=== PATIENT | female | born 1965 | race Caucasian/White ===

== ENCOUNTER 2019-12-28 01:52 | Outpatient (CLI) | payer BC, SELFPAY ==
[2019-12-28 20:48] LABS: SARS-CoV-2 RNA PCR Negative
== END 2019-12-28 01:53 | disposition home or self-care (01) ==
LOC: ANHCOVIDDT 01:53
PROVIDERS: PCP Internal Medicine; Visit Provider Internal Medicine Gastroenterology
DX: Z01.812 Encounter for preprocedural laboratory examination (principal); Z11.59 Encounter for screening for other viral diseases
CPT/HCPCS: 87635; C9803; U0003

== ENCOUNTER 2019-12-30 01:27 | Day surgery (SDC) | payer BC, SELFPAY ==
[2019-12-23 10:12] VITALS: BMI 21.3
[2019-12-30 06:27] VITALS: BMI 20.6
[2019-12-30 06:41] VITALS: BP 114/72; PULSE 75; RESP 20; TEMP 36.5; O2SAT 99
[2019-12-30] MEDS: LACTATED RINGERS 1,000 ML 150 ML IV CONT (06:43)
--- NOTE | 2019-12-30 07:06 | PM.HPGS ---
History of Present Illness History of Present Illness Consent: Risks, benefits, and alternatives have been discussed and questions answered. Patient agrees to proceed with procedure. Chief complaint: Neoplasm Screening Narrative: Bisi Mayberry is a 54 year old W female Referred for screening colonoscopy. Patient is asymptomatic. There is no known family history of colon polyps or colon cancer. Patient did have a colonoscopy approximately 13 years ago she had a iron deficiency anemia this is a normal exam. Patient has responded to iron supplementation. [facility] Past Medical History Medical History (Updated 12/30/19 @ 07:07 by Michael Tamez MD) Hypertension Surgical History Surgical History (Updated 12/30/19 @ 07:08 by Michael Tamez MD) H/O left wrist surgery H/O wisdom tooth extraction History of appendectomy History of endometrial ablation Social History Social History Alcohol intake: current Drinks per week: 7 Substance use type: does not use Living arrangements: alone Spiritual care concerns: No Meds Home Medications and Allergies Home Medications Medication Instructions Recorded Confirmed Type [place]-3 1 tab-cap PO DAILY 12/23/19 12/23/19 History Zinc 1 tab-cap PO DAILY 12/23/19 12/30/19 History cholecalciferol (vitamin D3) 1,000 mcg PO DAILY 12/23/19 12/23/19 History [Vitamin D3] ibuprofen 200 mg PO Q6H PRN 12/23/19 12/23/19 History liothyronine 10 mcg PO DAILY 12/23/19 12/23/19 History lisinopril-hydrochlorothiazide 20 - 25 tablet PO DAILY 12/23/19 12/23/19 History magnesium oxide 500 mg PO DAILY 12/23/19 12/23/19 History opggmqnmvwra-xzef-faoyn acid 1 tablet PO DAILY 12/23/19 12/23/19 History [Daily Multivitamin with Iron] Allergies Allergy/AdvReac Type Severity Reaction Status Date / Time Sulfa (Sulfonamide Allergy Hives Verified 12/23/19 10:07 Antibiotics) Vital Signs Vital Signs - 24 hr 12/30/19 06:41 Temperature 36.5 C Pulse Rate 75 Respiratory Rate 20 Blood Pressure 114/72 Pulse Oximetry 99 Exam Const: Orientation/consciousness: patient oriented x3 Resp: Auscultation: clear to auscultation bilaterally Cardio: Rate: regular rate Rhythm: regular rhythm Heart sounds: no murmurs GI: GI Palp: Yes Soft to palpation, No Tenderness to palpation present (GI), Yes No hepatosplenomegaly present and No Palpable mass present Auscultation: normal bowel sounds Neuro: General: patient oriented x3 and no focal motor deficits Extrem: General: no pedal edema Assessment and Plan Additional Plan screening colonoscopy in average risk patient
--- NOTE | 2019-12-30 07:12 | P.PNAN_ITS ---
Anes - Initial Pre Proc Eval Procedure: Operation Date: 12/30/19 07:30 Proposed Procedures p Screening Colonoscopy - Michael Tamez MD Date/Time: 12/30/19 07:12 Surgeon: Michael Tamez MD Pre Op Diagnosis: Neoplasm Screening Patient Data Age: 54 Gender: F Height: 5 ft 4 in Weight: 54.5 kg Last Vital Signs Temp 97.7 F 12/30/19 06:41 Pulse 75 12/30/19 06:41 Resp 20 12/30/19 06:41 BP 114/72 12/30/19 06:41 Pulse Ox 99 12/30/19 06:41 Allergies Allergy/AdvReac Type Severity Reaction Status Date / Time Sulfa (Sulfonamide Allergy Hives Verified 12/23/19 10:07 Antibiotics) Home Medications Medication Instructions Recorded Confirmed Type [place]-3 1 tab-cap PO DAILY 12/23/19 12/23/19 History Zinc 1 tab-cap PO DAILY 12/23/19 12/30/19 History cholecalciferol (vitamin D3) 1,000 mcg PO DAILY 12/23/19 12/23/19 History [Vitamin D3] ibuprofen 200 mg PO Q6H PRN 12/23/19 12/23/19 History liothyronine 10 mcg PO DAILY 12/23/19 12/23/19 History lisinopril-hydrochlorothiazide 20 - 25 tablet PO DAILY 12/23/19 12/23/19 History magnesium oxide 500 mg PO DAILY 12/23/19 12/23/19 History rmuawqlbbtvb-uxmt-cqkcg acid 1 tablet PO DAILY 12/23/19 12/23/19 History [Daily Multivitamin with Iron] Patient hx anesthesia problems: none Family hx anesthesia problems: none PMFSH Past Medical History Medical History (Updated 12/30/19 @ 07:07 by Michael Tamez MD) Hypertension Surgical History Surgical History (Updated 12/30/19 @ 07:08 by Michael Tamez MD) H/O left wrist surgery H/O wisdom tooth extraction History of appendectomy History of endometrial ablation Social History Social History Alcohol intake: current Drinks per week: 7 Substance use type: does not use Living arrangements: alone Spiritual care concerns: No Anes - Eval Final PreProcedure Day of Procedure 12/30/19 07:12 Patient weight: normal Heart: regular rate and rhythm Lungs: clear to auscultation Airway: Mallampati scale class II Neurological: alert and oriented Last oral intake: >/= 8 hours ASA classification: II Emergent: no Anesthetic plan: proceed Anesthesia type and monitoring: general GIVS and standard monitoring Informed Consent: The patient's anesthetic plan and its attendant risks and benefits were discussed with the patient/family/POA. Questions were solicited and answers provided to the satisfaction of the patient/family/POA.
[2019-12-30 07:47] VITALS: BP 106/66; PULSE 60; RESP 15; O2SAT 93
[2019-12-30 07:57] VITALS: BP 112/74; PULSE 59; RESP 12; O2SAT 99
[2019-12-30 08:07] VITALS: BP 119/77; PULSE 56; RESP 12; O2SAT 98
== END 2019-12-30 08:17 | disposition home or self-care (01) ==
PROVIDERS: PCP Internal Medicine; Visit Provider Internal Medicine Gastroenterology
PROC: 0DJD8ZZ Inspection of Lower Intestinal Tract, Via Natural or Artificial Opening Endoscopic (ICD-10-PCS; CPT 45378; principal; 2019-12-30 07:30)
DX: Z12.11 Encounter for screening for malignant neoplasm of colon (principal); K62.1 Rectal polyp; K64.4 Residual hemorrhoidal skin tags; I10 Essential (primary) hypertension; Z79.899 Other long term (current) drug therapy; Z88.2 Allergy status to sulfonamides
CPT/HCPCS: 45380; 88305; J2001; J2704; J7120

== ENCOUNTER 2022-09-30 08:36 | Outpatient (CLI) | payer OTHER, SELFPAY ==
--- NOTE | ~2022-09-30 | US_ITS ---
EXAMINATION: US venous doppler [facility] DATE: 09/30/2022 09:11 INDICATION: Left lower limb pain. TECHNIQUE: Grayscale ultrasound images without and with compression and Doppler ultrasound images of the left lower extremity veins were obtained. COMPARISON: None. FINDINGS: The visualized portions of left common femoral vein, profunda (deep) femoral vein, femoral vein, popl iteal vein, peroneal veins, posterior tibial veins, and greater saphenous vein outflow are patent. IMPRESSION: 1. No deep venous thrombosis. Reviewed, dictated and finalized at location A.
== END 2022-09-30 08:37 | disposition home or self-care (01) ==
PROVIDERS: PCP Internal Medicine; Visit Provider Orthopaedic Surgery
DX: M79.605 Pain in left leg (principal); M79.89 Other specified soft tissue disorders
CPT/HCPCS: 93971

== ENCOUNTER 2022-10-11 07:50 | Outpatient (CLI) | payer OTHER, SELFPAY ==
[2022-10-11 08:34] LABS: Basophils Absolute Auto 0.1 K/mm3 (0.0-0.1); Basophils Percent Auto 0.9 % (0.2-1.2); Eosinophils Absolute Auto 0.2 K/mm3 (0-0.3); Eosinophils Percent Auto 2.3 % (0-4.4); Hemoglobin 13.9 g/dL (12.0-15.0); Immature Granulocyte Absolute 0.05 K/mm3 (0.00-0.031); Immature Granulocyte Percent A 0.8 % (0-0.5); Lymphocytes Absolute Auto 1.48 K/mm3 (0.9-3.2); Lymphocytes Percent Auto 22.6 % (18.3-44.2); Mean Corpuscular HGB Conc 34.8 g/dl (32-36); Mean Corpuscular Hemoglobin 34.5 pg (26-34); Mean Corpuscular Volume 99.3 fl (80-100); Mean Platelet Volume 9.6 fl (7.4-10.4); Monocytes Absolute Auto 0.7 K/mm3 (0.1-0.6); Monocytes Percent Auto 11.3 % (2.6-8.5); Neutrophils Absolute Auto 4.1 K/mm3 (1.3-6.7); Neutrophils Percent Auto 62.1 % (45.5-73.1); Platelet Count Result 289 k/mm3 (150-375); Red Blood Count 4.03 M/mm3 (4.2-5.4); Red Cell Distribution Width 12.2 % (11.5-14.5); White Blood Count 6.6 K/mm3 (4.5-10.0)
[2022-10-11 08:40] LABS: Alanine Aminotransferase 26 U/L (6-35); Albumin Level 4.2 g/dL (3.5-5.1); Alkaline Phosphatase 54 U/L (38-126); Anion Gap 2 mmol/L (8-16); Aspartate Amino Transferase 34 U/L (14-36); Bilirubin,Total 0.6 mg/dL (0.2-1.3); Blood Urea Nitrogen 14 mg/dL (7-17); Calcium 9.2 mg/dL (8.4-10.2); Carbon Dioxide 35 mmol/L (22-30); Chloride 100 mmol/L (98-107); Cholesterol 199 mg/dL (0-200); Estimated Glomerular Filt Rate > 60; Glucose 89 mg/dL (65-110); HDL Direct 49 mg/dL; Sodium 137 mmol/L (137-145); Triglycerides 145 mg/dL (<150)
[2022-10-11 08:54] LABS: LDL Cholesterol Direct 112 mg/dL
[2022-10-15 04:33] LABS: Lipoprotein A 109 nmol/L (<75)
[2022-10-16 19:38] LABS: CRP, High Sensitivity 0.5 mg/L (***)
== END 2022-10-11 07:51 | disposition home or self-care (01) ==
PROVIDERS: PCP Internal Medicine; Visit Provider Internal Medicine
DX: Z00.00 Encounter for general adult medical examination without abnormal findings (principal); I10 Essential (primary) hypertension
CPT/HCPCS: 36415; 80053; 80061; 83695; 85025; 86141

== ENCOUNTER 2024-05-26 01:23 | Day surgery (SDC) | payer OTHER, SELFPAY ==
[2024-05-12 15:04] VITALS: BMI 19.1
--- OUTSIDE RECORDS SUMMARY | 2024-05-26 01:27 | XMS_ITS | Clinical Summary ---
Author Organization [facility] Address [address] [place]: Epic Prelude ADT [place] [address] Care Team Providers Care Lens Finisher Name Role Phone Unavailable Primary Care Provider Unavailabl e Encounters Date Type Department Care Team Description 05/18/2024 External Device Data [facility] ABSTRACTION Provider, Abstract 05/17/2024 External Device Data [facility] ABSTRACTION Provider, Abstract 05/03/2024 External Device Data [facility] ABSTRACTION Provider, Abstract 02/24/2024 External Device Data [facility] ABSTRACTION Provider, Abstract from Last 3 Months Social History Tobacco Use Types Packs/Day Years Used Date Smoking Tobacco: Never Assessed Comments Unknown Sex and Gender Information Value Date Recorded Sex Assigned at Not on file 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 Gender Identity Not on file Sexual Orientation Not on file Plan of Treatment Health Maintenance Due Date Last Done Comments DTAP/TDAP/TD VACCINES (1 - Tdap) 1985 HEPATITIS B VACCINES (1 of 3 - 19+ 3-dose series) 1985 CERVICAL CANCER SCREENING 1996 BREAST CANCER SCREENING 2006 COLORECTAL SCREENING 10/12/2011 Colorectal Cancer Screening 10/12/2011 FIT-DNA Q 3 years 10/12/2011 FIT/FOBT Q 1 year 10/12/2011 Flex Sig/CT Colonography Q 5 years 10/12/2011 ZOSTER VACCINE (1 of 2) 2016 INFLUENZA VACCINE (#1) 2023 PNEUMOCOCCAL VACCINE 0-64 YEARS Aged Out No longer eligible based on patient's age to complete this topic
--- OUTSIDE RECORDS SUMMARY | 2024-05-26 01:27 | XMS_ITS | Encounter Summary ---
Author Organization [facility] Address [address] [place] [address] Care Team Providers Care Quality Control Systems Manager Name Role Phone Unavailable Primary Care Provider Unavailabl e Encounter Details Date Type Department Care Team (Late st Contact Info) Description 09/10/2001 Outpatient Historical [facility] Maternal and [address] [place] [address] Pillo Shepard MD [id number] [place] [address] Social History Tobacco Use Types Packs/Day Years Used Date Smoking Tobacco: Never Assessed Comments Unknown Sex and Gender Information Value Date Recorded Sex Assigned at Not on file 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
--- OUTSIDE RECORDS SUMMARY | 2024-05-26 01:27 | XMS_ITS | Encounter Summary ---
Author Organization [facility] Address 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
--- OUTSIDE RECORDS SUMMARY | 2024-05-26 01:27 | XMS_ITS | Data Portability ---
Author Organization [place] [facility], Main Office Address [address] [place] [address] Assessment Encounter Date Assessment Date Assessment LastModified by Organization Details LastModified Time 10/10/2022 10/10/2022 Continue current therapy follow-up in 6 months blood work including LipoProfile teen a high sensitivity CRP she did not get her coronary calcium score yet I have asked her to do that she is getting mammograms through her verifier [email or web address] Not available 10/10/2022 16:35:15 04/09/2023 04/09/2023 LDL is down to 6 0. Blood pressure running little bit on the low side so we will cut the lisinopril hydrochlorothiazide in half I will see her in 6 months [email or web address] Not available 04/09/2023 20:41:30 Plan of Treatment Reminders Order Date Submit Date Provider Last Modified By Organization Details Last Modified Time Details Appointments None recorded. Lab CBC w/ auto diff 2022 023 [facility] (Lab), [address] [place], [address], 3 15:03:03 CMP, serum or plasma 2022 023 [facility] (Lab), [address] [place], [address], 3 13:02:49 lipid panel, serum 2022 023 [facility] (Lab), [address] [place], [address], 3 15:03:03 lipoprotein (A), serum 2022 023 [facility] (Lab), [address] [place], [address], 3 07:50:11 unlisted lab - high-sensit ivity CRP 2022 023 [facility] (Lab), [address] [place], [address], 3 11:21:38 Referral None recorded. Procedures None recorded. Surgeries None recorded. Imaging None recorded. Medication Orders None recorded. Patient TargetsNo targets recorded. Patient InstructionsNo instructions recorded. Reason for Referral None Reported. Results Created Date Observation Date Name Description Value Unit Range Abnormal Flag Note LastModifiedBy Organization Detail LastModifiedTime 04/05/20 21 MAMMO , scree mitzi, digit al, bilat eral [facility] [address] [place] [address] [phone] Patien t Name: CARLOS ALBERTO SCHAEFFER [place] Access ion #: [id number] Sex: F : 1965 2 Locati on: RA2 Attend ing Physic sia: CAROLYN CASTILLO Orderi Physic sia: CAROLYN CASTILLO Exam Date: 2020 9:03 AM Exam Name: MG DIGITA L RYDER BILAT SCREEN Admitt ing Diagno sis(es ): RADIOL OGY REPORT - FINAL EXAM: MG DIGITA L RYDER BILAT SCREEN HISTOR Y: Screen ing mammog finn 55-yea r-old female with no curren t breast compla ints. COMPAR MONICA: 2018, 2014 TECHNI QUE: Bilate ral CC and MLO views of the breast s were perfor med. Digita l Mammog katja images were obtain ed. CAD (compu ter assist ed detect ion) was utiliz ed. FINDIN GS: There are scatte red areas of fibrog landul ar densit y. No masses , asymme tries, suspic ious calcif icatio ns, or tito ectura l distor tion are seen. Page 1 of 2 [facility] William treviño Name: CARLOS ALBERTO SCHAEFFER Access ion #: [id number] Sex: F : 1965 2 Exam Date: 2020 9:03 AM Exam Name: MG DIGITA L RYDER BILAT SCREEN Admitt ing Diagno sis(es ): IMPRES ELEANOR: BIRADS 1: Assess ment comple te. Negati ve. Recomm end annual screen ing mammog katja. Accord ing to the [employer], yearly mammog gus are recomm ended starti ng at age 40 and contin uing as long as the woman is in good health . Clinic al Breast Exam should be part of the period ic health exam-a bout every 3 years for women in their 20s and 30s and every year for women 40 and over. Breast self-e xam is an option for women in their 20s. Any breast change noted on the breast self-e xam she would be report ed prompt ly [facility]. A negati ve mammog katja report should not discou rage follow -up or biopsy of a clinic ally signif icant findin g and/or abnorm ality. Dense breast tissue may obscur e small neopla sms. This william treviño has been entere d into a mammog katja remind er system with a target date for her next mammog finn. Create d and electr onical ly signed by: Greg jensen MD Signed Date: 2020 10:16 AM (CT) Dictat ed by: Greg jensen MD DD: 2020 10:16 AM (CT) DT: 2020 10:16 AM (CT) Page 2 of 2 [id number] [facility] (Imaging) [address] [place], [address], 06/25/2022 04:44:25 04/05/20 21 DEXA, axial skele ton [facility] [address], [place] [address] William treviño Name: CARLOS ALBERTO SCHAEFFER [place] Access ion #: [id number] Sex: F : 1965 2 Locati on: RA2 Attend ing Physic sia: CAROLYN CASTILLO Orderi ng Physic sia: CAROLYN CASTILLO Exam Date: 2020 9:03 AM Exam Name: XR DEXA AXIAL/ HIP/PE LVIS/S PINE Admitt ing Diagno sis(es ): RADIOL OGY REPORT - FINAL EXAM: XR DEXA AXIAL/ HIP/PE LVIS/S PINE HISTOR Y: Screen ing 55-yea r-old female with osteop orosis screen ing. COMPAR MONICA: None availa ble. TECHNI QUE: Dual energy x-ray of absorp tion examin ation of the bilate ral hips and lumbar spine in AP projec tion was perfor med. FINDIN GS: Lumbar Spine (L1-L4 ): The mean bone minera l densit y is 1.173 g/cm2 hydrox yapati te, correl ating with a T-scor e of -0.2. Bilate ral hips: The mean bone minera l densit y is 1.039 g/cm2 calciu m hydrox yapati te, correl ating with a T-scor e of 0.2. Page 1 of 2 [facility] William treviño Name: CARLOS ALBERTO SCHAEFFER [place] Access ion #: [id number] Sex: F : 1965 2 Exam Date: 2020 9:03 AM Exam Name: XR DEXA AXIAL/ HIP/PE LVIS/S PINE Admitt ing Diagno sis(es ): IMPRES ELEANOR: 1. The patien t's lumbar spine T-scor e is consis tent with normal bone minera l densit y overal l. It should be noted that the BMD at L1 and L2 is consis tent with osteop enia. 2. The patien t's bilate ral hip T-scor e is consis tent with normal bone minera l densit y. Accord ing to the World Health Organi zation , T-scor e values greate r than -1.0 are normal , values betwee n -1.0 and -2.5 are catego rized as osteop enia, T-scor e of -2.5 or more are catego rized as osteop orosis . Create d and electr onical ly signed by: Greg jensen MD Signed Date: 2020 9:22 AM (CT) Dictat ed by: Greg jensen MD DD: 2020 9:22 AM (CT) DT: 2020 9:22 AM (CT) Page 2 of 2 [id number] [facility] (Imaging) [address] [place], [address], 06/25/2022 04:44:25 10/03/19 22 01/05/2020 colon oscop y scree mitzi (PROC ) No observ ation record ed. [id number] Not Available 06/25/2022 04:44:25 10/01/19 23 09/30/2022 US, doppl er, venou s No observ ation record ed. [email or web address] [place] [address] [address] [facility] [address], [place], [address], 10/13/2022 10:11:48 11/01/19 23 10/31/2022 CT, coron rene calci um score No observ ation record ed. [email or web address] [facility] [address], [place], [address], 03/08/2023 13:59:57 Result Notes None recorded. Problems Name Problem SNOMED Code Status Onset Date Resolution Date Notes Provider Name and Address Organization Details Recorded Time Concussion injury of brain 842002974 Active 2019 Not Available [facility] 3 04:36:37 Essential hypertension 58762257 Active 2019 Not Available [facility] 3 04:36:37 Breast lump 43710815 Active Not Available [facility] 3 04:36:37 Problem Notes None recorded. Procedures Surgical History Date Name Laterality Status Provider Name and Address Organization Details Recorded Time 04/05/20 21 Most Recent Bone Density completed Not Available [facility] 06/25/2022 04:31:36 12/15/19 21 Date of Last Pap Smear completed Not Available [facility] 06/25/2022 04:31:36 08/25/19 19 Most Recent Mammogram completed Not Available [facility] 06/25/2022 04:31:36 01/12/20 13 Hysteroscopy ablation completed Not Available [facility] 06/25/2022 04:31:39 [facility] completed [facility] 04:31:39 Dilation and curettage completed Not Available [facility] 06/25/2022 04:31:39 Orthopedic Surgery completed Not Available [facility] 06/25/2022 04:31:39 Imaging Results Imaging Date Name Status LastModified by Organiz ation Details LastModified Time 04/05/2021 MAMMO, screening, digital, bilateral completed [id number] [facility] (Imaging) [address] [place], [address], 06/25/2022 04:44:25 04/05/2021 DEXA, axial skeleton completed [id number] [facility] (Imaging) [address] [place], [address], 06/25/2022 04:44:25 01/05/2020 colonoscopy screening (PROC) completed [id number] Information not available 06/25/2022 04:44:25 09/30/2022 US, doppler, venous completed [address], [place], [address], 10/13/2022 10:11:48 10/31/2022 CT, coronary calcium score completed [address] [facility] [address], [place], [address], 03/08/2023 13:59:57 Procedure Notes None recorded. Medical Equipment None Reported. Allergies Allergen ID Allergen Name Allergen Category Reaction Reaction Severity Criticality Documentation Date Start Date Code Code System Note Provider Name and Address Organization Details Recorded Time 6688 Substance with sulfonami de structure and antibacte rial mechanism of action (substanc e) medicatio n hives Not available Not available 06/25/2022 [id number] SNOMED swell ing Not Available [facility] 3 04:43:56 Medications Name Sig Start Date Stop Date Status Note LastModified by Organization Details LastModified Time semaglutide 1.25mg - bpc-157 1.25mg - b6 40mg/ml - 5ml vial INJECT 0.3ML SUBCUTANE OUSLY ONCE A WEEK. IF TOLERATED , INCREASE TO 0.4ML ONCE A WEEK THEREAFTE R active Not Available Not Available No t Available semaglutide 1.25mg - bpc-157 1.25mg - b6 40mg/ml injectable - 5ml vial INJECT 0.3ML TO 0.5ML SUBCUTANE OUSLY ONCE A WEEK active Not Available Not Available No t Available methocarbam ol 500 mg tablet Take 1 tablet 3 times a day by oral route. active Not Available Not Available No t Available Diamox Sequels 500 mg capsule,ext ended release Take 1 capsule every day by oral route for 7 days. 08/24 completed Not Available Not Available Not Available atorvastati n 10 mg tablet TAKE 1 TABLET BY MOUTH EVERY DAY active Not Available Not Available No t Available azithromyci n 250 mg tablet Take 2 tablets every day by oral route as directed for 1 day. 04/12 completed Not Available Not Available Not Available liothyronin e 25 mcg tablet 10/31 completed Not Available Not Available Not Available hydrocodone 5 mg-acetamin ophen 325 mg tablet 10/31 completed Not Available Not Available Not Available phentermine 37.5 mg tablet Take 1 tablet every day by oral route for 30 days. 08/24 completed Not Available Not Available Not Available liothyronin e 5 mcg tablet TAKE 1 TABLET BY MOUTH THREE TIMES A DAY active Not Available Not Available No t Available lidocaine-p rilocaine 2.5 %-2.5 % topical cream TAKE 1 GRAM EXTERNALL Y TWICE A DAY active Not Available Not Available No t Available ketorolac 10 mg tablet TAKE 1 TABLET BY MOUTH EVERY 6 HOURS NEEDED WITH FOOD OR MILK active Not Available Not Available No t Available cefadroxil 500 mg capsule TAKE 1 CAPSULE BY MOUTH EVERY 12 HOURS FOR 5 DAYS active Not Available Not Available No t Available Valium 5 mg tablet 1/2 tablet b.i.d. active Not Available Not Available No t Available Sure Comfort Insulin Syringe 1 mL 30 gauge x 5/16 USE DIRECTED FOR INJECTION S active Not Available Not Available No t Available neomycin-po lymyxin-dex ameth 3.5 mg/mL-10,00 0 unit/mL-0.1 % eye drops INSTILL 1 DROP INTO AFFECTED EYE(S) BY OPHTHALMI C ROUTE EVERY 3-4 HOURS 04/12 completed Not Available Not Available Not Available podofilox 0.5 % topical solution APPLY TOPICALLY THREE DAYS PER WEEK FOR 4 WEEKS DIRECTED 10/10 completed Not Available Not Available Not Available polymyxin B sulfate 10,000 unit-trimet hoprim 1 mg/mL eye drops INSTILL 1 DROP INTO AFFECTED EYE(S) BY OPHTHALMI C ROUTE EVERY 6 HOURS active Not Available Not Available No t Available captopril 25 mg tablet TAKE 1 TABLET 3 TIMES A DAY 10/31 completed Not Available Not Available Not Available lisinopril 20 mg-hydrochl orothiazide 25 mg tablet TAKE 1 TABLET BY MOUTH EVERY DAY active Not Available Not Available No t Available methylpredn isolone 4 mg tablets in a dose pack TAKE 6 TABLETS ON DAY 1 DIRECTED ON PACKAGE AND DECREASE BY 1 TAB EACH DAY FOR A TOTAL OF 6 DAYS active Not Available Not Available No t Available albuterol sulfate HFA 90 mcg/actuati on aerosol inhaler 1 PUFF INHALED EVERY 4 HOURS NEEDED FOR SHORTNESS OF BREATH OR WHEEZING active Not Available Not Available No t Available ondansetron 4 mg disintegrat ing tablet 10/31 completed Not Available Not Available Not Available progesteron e micronized 100 mg capsule TAKE 1 CAPSULE BY MOUTH EVERYDAY AT BEDTIME active Not Available Not Available No t Available Amphetamine Salt Combo 10 mg tablet TK 1 T PO BID active Not Available Not Available No t Available nitrofurant oin monohydrate /macrocryst als 100 mg capsule Take 1 capsule every 12 hours by oral route for 5 days. 10/31 completed Not Available Not Available Not Available Sure Comfort Insulin Syringe 1 mL 31 gauge x 5/16 USE DIRECTED FOR INJECTION S active Not Available Not Available No t Available captopril 20mg bid 08/24 completed Not Available Not Available Not Available levothyroxi ne 1 tablet po daily 10/31 completed Not Available Not Available Not Available Sronyx 0.1 mg-20 mcg tablet Take 1 tablet every day by oral route. active Not Available Not Available No t Available Suprep Bowel Prep Kit 17.5 gram-3.13 gram-1.6 gram oral solution USE DIRECTED active Not Available Not Available No t Available Lotemax 0.5 % eye gel drops INSTILL 1 - 2 DROPS INTO THE LOWER CONJUNCTI MAITE SAC OF THE AFFECTED EYE(S) BY OPHTHALMI C ROUTE 4 TIMES PER DAY START 24 HRS POST OP X 2 WKS 10/31 completed Not Available Not Available Not Available Lotemax SM 0.38 % eye gel drops PLACE 1 DROP INTO BOTH EYES 4 TIMES DAILY FOR 2 WEEKS 04/12 completed Not Available Not Available Not Available COVID-19 test specimen collection TEST DIRECTED 10/12 completed Not Available Not Available Not Available Flucelvax Quad (PF) 60 mcg (15 mcg x 4)/0.5 mL IM syringe active Not Available Not Available N ot Available BinaxNOW COVID-19 Ag Self Test kit TEST DIRECTED TODAY 10/10 completed Not Available Not Available Not Available Vuity 1.25 % eye drops INSTILL 1 DROP INTO BOTH EYES EVERY DAY 10/10 completed Not Available Not Available Not Available Vitals Date Recorded Body mass index (BMI) Body height Heart rate Body temperature Body weight Systolic blood pressure Diastolic blood pressure Provider Name and Address Organization Details Last Updated DateTime 1 21.8 kg/m2 162.56 cm 72 /min 97.3 [degF] 38572.2 3 g 100 mm[Hg] 60 mm[Hg] Not Available [facility] 3 04:33:40 Date Recorded Body mass index (BMI) Body height Heart rate Body temperature Body weight Systolic blood pressure Diastolic blood pressure Provider Name and Address Organization Details Last Updated DateTime 2 20.6 kg/m2 162.56 cm 82 /min 97.4 [degF] 99722.0 8 g 114 mm[Hg] 64 mm[Hg] Not Available [facility] 3 04:33:40 Date Recorded Body mass index (BMI) Body height Heart rate Body temperature Body weight Systolic blood pressure Diastolic blood pressure Provider Name and Address Organization Details Last Updated DateTime 2 20.8 kg/m2 162.56 cm 82 /min 98.2 [degF] 80809.6 8 g 114 mm[Hg] 72 mm[Hg] Not Available [facility] 3 04:33:40 Date Recorded Body height Body mass index (BMI) Body weight Body temperature Heart rate Systolic blood pressure Diastolic blood pressure Provider Name and Address Organization Details Last Updated DateTime 3 162.56 cm 20.6 kg/m2 08268.0 8 g 98 [degF] 59 /min 120 mm[Hg] 82 mm[Hg] EDISON Vyas [facility] 3 09:46:07 Date Recorded Body height Body mass index (BMI) Body weight Body temperature Heart rate Systolic blood pressure Diastolic blood pressure Provider Name and Address Organization Details Last Updated DateTime 3 162.56 cm 19.2 kg/m2 48258.3 5 g 97.5 [degF] 83 /min 98 mm[Hg] 66 mm[Hg] Pooja cabral CMA [facility] 3 16:26:16 Social History Question Answer Notes LastModified by Organization Details LastModified Time Tobacco Smoking Status Never Smoker Not Available [facility] 06/25/2022 04:11:05 Do You Have An Advance Directive? Yes MIGRATION.030 [id number] Information not available 06/25/2022 What Is Your Level Of Alcohol Consumption? Moderate MIGRATION.030 268595 Information not available 06/25/2022 Do You Wear A Helmet When Biking? Yes MIGRATION.030 [id number] Information not available 06/25/2022 What Is Your Level Of Caffeine Consumption? Moderate MIGRATION.0301 [id number] Information not available 06/25/2022 How Much Tobacco Do You Chew? None MIGRATION.030 410975 Information not available 06/25/2022 In The 14 Days Before Symptom Onset, Have You Had Close Contact With A Laboratory-confi rmed COVID-19 While That Case Was Ill? No MIGRATION.030 908604 Information not available 06/25/2022 In The 14 Days Before Symptom Onset, Have You Had Close Contact With A Person Who Is Under Investigation For COVID-19 While That Person Was Ill? No MIGRATION.0301 [id number] Information not available 06/25/2022 What Type Of Diet Are You Following? REGULAR MIGRATION.0301 075081 Information not available 06/25/2022 Which Illicit Or Recreational Drugs Have You Used? None MIGRATION.0301 [id number] Information not available 06/25/2022 Do You Or Have You Ever Used E-cigarettes Or Vape? Never Used Electronic Cigarettes MIGRATION.0301 793326 Information not available 06/25/2022 What Is The Highest Grade Or Level Of School You Have Completed Or The Highest Degree You Have Received? 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 No MIGRATION.0301 587354 Information not available 06/25/2022 What Is The Fluoride Status Of Your Home? Unknown MIGRATION.0301 423929 Information not available 06/25/2022 Are There Any Guns Present In Your Home? Yes MIGRATION.0301 615888 Information not available 06/25/2022 Do You Use Insect Repellent Routinely? Yes MIGRATION.0301 100237 Information not available 06/25/2022 Where Do You Live? [facility] MIGRATION.0301 913056 Information not available 06/25/2022 Do You Have A Medical Power Of Asparagus Buncher? Yes MIGRATION.0301 797527 Information not available 06/25/2022 What Was The Date Of Your Most Recent Tobacco Screening? 10/10/2022 [email or web address] Information not available 10/10/2022 Have You Ever Been Counseled For Unhealthy Alcohol Use? No MIGRATION.0301 054462 Information not available 06/25/2022 Do You Have Any Pets? Yes MIGRATION.0301 147499 Information not available 06/25/2022 What Is Your Relationship Status? MIGRATION.0301 786931 Information not available 06/25/2022 Do You Use Your Seat Belt Or Car Seat Routinely? Yes MIGRATION.0301 403530 Information not available 06/25/2022 Do You Have Smoke And Carbon Monoxide Detectors In Your Home? Yes MIGRATION.0301 531666 Information not available 06/25/2022 Are You Passively Exposed To Smoke? No MIGRATION.0301 720611 Information not available 06/25/2022 Do You Or Have You Ever Used Smokeless Tobacco? Never Used Smokeless Tobacco MIGRATION.0301 031264 Information not available 06/25/2022 Are There Any Smokers In Your House? No MIGRATION.0301 861692 Information not available 06/25/2022 How Much Tobacco Do You Smoke? No MIGRATION.0301 870014 Information not available 06/25/2022 What Types Of Sporting Activities Do You Participate In? Golf MIGRATION.0301 697194 Information not available 06/25/2022 Do You Feel Stressed (tense, Restless, Nervous, Or Anxious, Or Unable To Sleep At Night)? [id number] MIGRATION.0301 104531 Information not available 06/25/2022 Do You Use Any Illicit Or Recreational Drugs? No MIGRATION.0301 995774 Information not available 06/25/2022 Do You Use Sunscreen Routinely? Yes MIGRATION.0301 [id number] Information not available 06/25/2022 Has Tobacco Cessation Counseling Been Provided? No Not Needed-ne michael Smoked MIGRATION.0301 474305 Information not available 06/25/2022 How Many Years Have You Smoked Tobacco? 0 MIGRATION.0301 736689 Information not available 06/25/2022 Have You Recently Traveled Abroad? No MIGRATION.0301 278309 Information not available 06/25/2022 Do You Have Any Dietary Restrictions? No MIGRATION.0301 506010 Information not available 06/25/2022 Do You Or Have You Ever Used Any Other Forms Of Tobacco Or Nicotine? No MIGRATION.0301 033659 Information not available 06/25/2022 Sex: Female Functional Status Question Answer Note LastModified by Organizat ion Details LastModified Time What is your exercise level? Heavy MIGRATION.[id number] Information not available 06/25/2022 Mental Status None recorded. Family History Relationship Description Onset Age of this Age Resolved Age Notes LastModified by Organization Details LastModified Time Mother Malignant neoplastic disease MIGRATION.658 [id number] Not available 06/25/2022 04:31:42 Mother Hypertensive disorder MIGRATION.159 [id number] Not available 06/25/2022 04:31:42 Father Myocardial infarction 54 MIGRATION.443 [id number] Not available 06/25/2022 04:31:42 Father Hypertensive disorder MIGRATION.010 [id number] Not available 06/25/2022 04:31:42 Brother Hypertensive disorder MIGRATION.314 [id number] Not available 06/25/2022 04:31:42 Sister Hypertensive disorder MIGRATION.295 [id number] Not available 06/25/2022 04:31:43 Unspecified Relation Family history of ischemic heart disease MIGRATION.757 [id number] Not available 06/25/2022 04:31:43 Medical History Condition Response NERVE DISEASE N BLINDNESS N RHEUMATIC FEVER N KIDNEY STONES N BLADDER PROBLEMS N MRSA N OTHER # 1 N POLIO N LUNG DISEASE/DISORDER N HISTORY OF DRUG ABUSE N RADIATION / CHEMOTHERAPY N COPD N Other # 2 N BLOOD DISEASES N EAR OR HEARING PROBLEMS N MUMPS N SHINGLES N BOWEL PROBLEMS N DEPRESSION (INCLUDING POST ) N STROKE/TIA N ULCERS N BENIGN PROSTATIC HYPERPLASIA N MEASLES N HYPOTENSION N MYOCARDIAL INFARCTION N OBESITY N GERD/NAUSEA N ANEURYSM N URINARY/BLADDER/KIDNEY PROBLEMS N CORONARY ARTERY DISEASE (CAD) N ADDICTION CONCERNS N Impotence N ENDOMETRIOSIS N USE OF BLOOD THINNERS N SKIN PROBLEMS N GASTROINTESTINAL DISORDER N PERIPHERAL VASCULAR DISEASE N MUSCLE,JOINT OR BONE PROBLEMS N GASTROINTESTINAL BLEEDING N BLOOD CLOTS N ASTHMA Y CATARACTS N ERECTILE DYSFUNCTION N VARICOSITIES N GI PROBLEMS N Low Testosterone N INFERTILITY N AIDS/HIV N CHEMOTHERAPY / RADIATION N LIVER DISEASE N MALE HYPOGONADISM N HYPERTENSION Y Deficiency N TOURETTE'S N ANXIETY DISORDER N BLOOD TRANSFUSION N ANEMIA/BLOOD DISORDER N CHRONIC EAR INFECTIONS N BRONCHITIS N TUBERCULOSIS N GLAUCOMA N FOOT PROBLEM N DIVERTICULITIS N SLEEP APNEA N CHICKENPOX N INFECTIOUS DISEASE N PROSTATE N HEART ARRHYTHMIA N INSOMNIA N HIGH CHOLESTEROL / HYPERLIPIDEMIA N EYE PROBLEMS N HYPERTHYROIDISM N EDEMA Y CHRONIC PAIN SYNDROME N HYPOTHYROIDISM N CONSTIPATION N CAROTID BLOCKAGE N BACK / NECK PROBLEMS N HAVE YOU BEEN HOSPITALIZED OR SEEN IN [facility] IN THE PAST YEAR ? N ATHEROSCLEROSIS N BREAST PROBLEMS Y DIALYSIS N ECZEMA N OSTEOPOROSIS N ARTHRITIS N APPENDICITIS N DIABETES, TYPE N BAD TEETH N ENT N HEARTBURN / REFLUX N AUTISM SPECTRUM DISORDER (ASD) N HEPATITIS / LIVER DISEASE N GOUT N SLEEP DISORDER N ALZHEIMER'S DISEASE N Brain Problems Y DEMENTIA N HERPES N SEIZURES/EPILEPSY N HEADACHES/MIGRAINES N VASCULAR DISEASE N PACEMAKER N Blood Disorder N DIZZINESS N HEART DISEASE/HEART PROBLEMS N KIDNEY DISEASE N MULTIPLE SCLEROSIS N CANCER: SPECIFY N CARDIAC ARRHYTHMIA N ATRIAL FIBRILLATION N Gall Stones N PULMONARY EMBOLISM N AUTOIMMUNE DISEASE N Gynecological History Statement/Question Response Abnormal Pap Y Most Recent Bone Density 04/05/2021 Date of LMP Menses Monthly N Date of Last Pap Smear 12/14/2020 Current Control Method Partner Vas ectomy Most Recent Mammogram 08/24/2018 Breast Problems no Obstetrics History GPAL:G 4 P 3 0 1 3 Type Value Full Term 3 Living 3 Ectopics 1 Total 4 Immunizations Vaccine Type Date Status Note Provider Nam e and Address Organization Details Recorded Time COVID-19, mRNA, LNP-S, PF, 100 mcg/0.5mL dose or 50 mcg/0.25mL dose 1 completed Not Available [facility] 06/25/2022 04:43:36 zoster recombinant 1 completed Not Available [facility] 06/25/2022 04:43:36 Influenza, split virus, quadrivalent, preservative 1 completed Not Available [facility] 06/25/2022 04:43:36 COVID-19, mRNA, LNP-S, PF, 100 mcg/0.5mL dose or 50 mcg/0.25mL dose 1 completed Not Available [facility] 06/25/2022 04:43:36 COVID-19, mRNA, LNP-S, PF, 100 mcg/0.5mL dose or 50 mcg/0.25mL dose 1 completed Not Available [facility] 06/25/2022 04:43:36 Influenza, split virus, quadrivalent, preservative 0 completed Not Available [facility] 06/25/2022 04:43:36 Past Encounters Encounter ID Performer Location Encounter Start Date Encounter Closed Date Diagnosis/Indication Diagnosis SNOMED-CT Code Diagnosis ICD10 Code Diagnosis Note [id number] [facility] [place] [address] [facility] [address] [place] [address] 10/12/2020 00:00:00 10/21/2020 16:12:04 [id number] _ATHENA_M IGRATION_ DEFAULT_1 _1 , 12/14/2020 00:00:00 12/14/2020 13:25:50 [id number] [facility] [place] [address] [place] [address] [place] [address] 04/12/2021 00:00:00 04/13/2021 17:09:29 [id number] [facility] Internal Med [facility] [address] [place] [address] [place] [address] 2021 00:00:00 11/03/2021 09:56:42 [id number] [facility] Internal Med [facility] [address] [facility] [address] [place] [address] 04/11/2022 00:00:00 04/12/2022 15:27:40 [id number] Manuel Serra MD S_GMG Internal Med [facility] [address] [facility] [address] [place] [address] 10/10/2022 09:38:01 10/10/2022 10:29:46 Essential hypertension 60607055 I10 Adult heal th examination 934315027 Z00.00 [id number] Manuel Serra MD [facility] [place] [address] [facility] , [facility] [place] [address] 04/09/2023 16:14:30 05/25/2023 14:09:25 Essential hypertension 90269019 I10 Health Concerns Section Related Observation LastModified by Organization Detai ls LastModified Time None Recorded Concern Status LastModified by Organization Details LastModified Time None Recorded Advance Directives Directive Y: Payers Encounter Date Sequence Insurance Name Policy Number Policy Rodriguez Covered Member ID Rodriguez Member ID Guarantor Name 10/10/2022 1 R [id number] Alex Mayberry [id number] Bisi Mayberry 04/09/2023 1 UMR [id number] Alex Mayberry [id number] Bisi Mayberry Notes Date Note Type Note Provider Name and Address Organization Details Recorded Time 10/10/2022 text/html hypertension blo od pressure looks good no symptomsinterval history broke her left ankle while sailing [place] the [place] Manuel Serra MD [address], [address], [place], [address], [place] [facility] 10/10/2022 16:35:19 04/09/2023 text/html For all not terr ibly bad feeling well exercising regularly without any complaints Manuel Serra MD [address] [facility] [place] [address], [place], [address], [facility] 04/09/2023 20:41:33 OBGyn Episode No OBEpisode recorded.
--- OUTSIDE RECORDS SUMMARY | 2024-05-26 01:27 | XMS_ITS | Clinical Summary ---
Author Organization [facility] Address [address] [place] [address]. [place] [address] Care Team Providers Care Rental Representative Name Role Phone Unavailable Primary Care Provider Unavailabl e Social History Tobacco Use Types Packs/Day Years Used Date Smoking Tobacco: Never Assessed Comments Unknown Sex and Gender Information Value Date Recorded Sex Assigned at Not on file Legal Sex Female 4:47 PM CDT Gender Identity Not on file Sexual Orientation Not on file Plan of Treatment Health Maintenance Due Date Last Done Comments Cervical Cancer Screening Pa p Smear (Age 30 to 64) Every 3 Years 1966 Colorectal Cancer Screening Colonoscopy (10 Years) 1966 Annual Physical 1969 Hepatitis C 1984 DTaP, Tdap and Td Vaccines ( 1 - Tdap) 1985 Hepatitis B Vaccines (1 of 3 - 19+ 3-dose series) 1985 Cervical Cancer Screening Pa p with HPV Testing (Age 30 to 64) Every 5 Years 1996 Cervical Cancer Screening with HPV 1996 Mammogram Screening 2006 Zoster Vaccines (1 of 2) 2016 COVID-19 Vaccine (2023-2 5 season) 2023 Influenza Adult (#1) 2024 Meningococcal B Vaccine Aged Out No l onger eligible based on patient's age to complete this topic Meningococcal Vaccine Aged Out No colleen sandhay eligible based on patient's age to complete this topic Pneumococcal Vaccine: Pediat rics (0 to 5 Years) and At-Risk Patients (6 to 64 Years) Aged Out No longer eligible b ased on patient's age to complete this topic RSV Immunizations Under 20 Months Aged Out No longer eligible based on patient's age to complete this topic
--- OUTSIDE RECORDS SUMMARY | 2024-05-26 01:27 | XMS_ITS | Encounter Summary ---
Author Organization [facility] Address [address] [place] [address] Care Team Providers Care Roof Bolter Helper Name Role Phone Unavailable Primary Care Provider Unavailabl e Encounter Details Date Type Department Care Team (Late st Contact Info) Description 12/17/2001 Outpatient Historical [facility] Maternal and Ground Floor S [facility] [employer] [address] [place] [address] Betty Gonzalez MD [address] [place] [address] Social History Tobacco Use Types Packs/Day Years Used Date Smoking Tobacco: Never Assessed Comments Unknown Sex and Gender Information Value Date Recorded Sex Assigned at Not on file 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
--- OUTSIDE RECORDS SUMMARY | 2024-05-26 01:27 | XMS_ITS | Encounter Summary ---
Author Organization [facility] Address [address] [place] [address] Care Team Providers Care Sheet Metal Journeyman Name Role Phone Unavailable Primary Care Provider Unavailabl e Encounter Details Date Type Department Care Team (Latest Contact Info) Description 12/17/2001 Inpatient Historical [facility] PATIENT IN A BED Tanner Beach MD [address] [place] [address] Timi Garcia MD [address] [place] [address] OLIGOHYDRAMNIOS-DELI WILNER (Primary Dx) Social History Tobacco Use Types Packs/Day Years Used Date Smoking Tobacco: Never Assessed Comments Unknown Sex and Gender Information Value Date Recorded Sex Assigned at Not on file 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
--- OUTSIDE RECORDS SUMMARY | 2024-05-26 01:27 | XMS_ITS | Encounter Summary ---
Author Organization [facility] Address 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
--- OUTSIDE RECORDS SUMMARY | 2024-05-26 01:27 | XMS_ITS | CONTINUITY OF CARE DOCUMENT ---
Author Name cameron barnes Address Unknown Organization [facility] Address [id number] [place] [address] [address] [place] [address] Phone [phone] Care Team Providers Care Wildlife Science Professor Name Role Phone Broderick GODOY, Amado Unavailable MILDRED ROSARIO MD Unavailable MILDRED ROSARIO MD Unavailable [phone] PROBLEMS Condition Status Date Provider Notes Cardiovascular screening active Irene Toth INSURANCE PROVIDERS Payer name Policy type / Coverage type Garrett red green party ID [id number] insurance company [id number] TREATMENT PLAN Date Name CT, Coronary Calcium Score CT, Coronary Calcium Score
--- OUTSIDE RECORDS SUMMARY | 2024-05-26 01:27 | XMS_ITS | Encounter Summary ---
Author Organization [facility] Address [address] [place] [address] Care Team Providers Care Medical Associate Name Role Phone Unavailable Primary Care Provider Unavailabl e Encounter Details Date Type Department Care Team (Late st Contact Info) Description 12/17/2001 Outpatient Historical [facility] Maternal and Ground Floor S [facility] [employer] [address] [place] [address] Betty Gonzalez MD [address] [place] [address] Social History Tobacco Use Types Packs/Day Years Used Date Smoking Tobacco: Never Assessed Comments Unknown Sex and Gender Information Value Date Recorded Sex Assigned at Not on file 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
[2024-05-26 06:19] VITALS: BP 107/64; PULSE 83; RESP 16; TEMP 36; O2SAT 100; BMI 18.6
[2024-05-26] MEDS: LACTATED RINGERS 1,000 ML 150 ML IV CONT (06:27)
--- NOTE | 2024-05-26 07:08 | WPDANESEPPF ---
Anes - Initial Pre Proc Eval Procedure: Operation Date: 05/26/24 07:30 Proposed Procedures p Screening Colonoscopy - Doyle Roth DO Date/Time: 05/26/24 07:08 Surgeon: Doyle Roth DO Pre Op Diagnosis: Screening for malignant neoplasm of colon Patient Data Age: 58 Gender: F Height: 1.6 m Weight: 47.6 kg Last Vital Signs Temp 36.0 C L 05/26/24 06:19 Pulse 83 05/26/24 06:19 Resp 16 05/26/24 06:19 BP 107/64 05/26/24 06:19 Pulse Ox 100 05/26/24 06:19 O2 Del Method Room Air 05/26/24 06:19 Allergies Allergy/AdvReac Type Severity Reaction Status Date / Time Sulfa (Sulfonamide Allergy Hives Verified 05/26/24 06:18 Antibiotics) Home Medications ?Medication ?Instructions ?Recorded ?Confirmed ?Type cholecalciferol (vitamin D3) 25 1,000 mcg PO DAILY 12/23/19 05/12/24 History mcg (1,000 unit) tablet (Vitamin D3) magnesium oxide 500 mg PO DAILY 12/23/19 05/12/24 History multivitamin-ferrous 1 tablet PO DAILY 12/23/19 04/21/24 History fumarate-folic acid 18 mg-400 mcg tablet (Daily Multivitamin with Iron) liothyronine 5 mcg tablet 5 mcg PO TID #270 tabs 06/03/21 05/12/24 Rx albuterol sulfate 90 mcg/actuation 1 puff inhalation Q4H PRN 09/19/21 05/12/24 Rx aerosol inhaler (Ventolin HFA) shortness of breath or wheezing #8.5 grams omega-3 fatty acids 500 mg capsule 500 mg PO DAILY 09/30/22 05/12/24 History zinc sulfate 50 mg zinc (220 mg) 50 mg PO DAILY 09/30/22 05/12/24 History capsule (Zinc-220) atorvastatin 10 mg tablet 10 mg PO DAILY #90 tabs 05/13/23 05/12/24 Rx Prometrium 200 mg capsule 200 mg PO QHS 90 days #90 caps 07/07/23 05/12/24 Rx (progesterone micronized) lisinopril 20 1 tablet PO DAILY #90 tabs 12/29/23 05/12/24 Rx mg-hydrochlorothiazide 25 mg tablet tarine BYMOUTH 04/21/24 04/21/24 History Patient hx anesthesia problems: none Family hx anesthesia problems: none Results Review: All pre-operative results and documents have been reviewed as part of the pre-operative evaluation. [facility] Past Medical History Medical History (Updated 04/21/24 @ 13:14 by Eladia Gonsalves MA) Hypothyroid Hyperlipidemia Hypertension Surgical History Surgical History History of endometrial ablation H/O wisdom tooth extraction History of appendectomy H/O left wrist surgery Family History Family History (Updated 04/21/24 @ 13:15 by Eladia Gonsalves MA) Other Cardiovascular disease Social History Social History (Updated 04/21/24 @ 13:15 by Eladia Gonsalves MA) Smoking status: Never smoker Alcohol intake: current Drinks per week: 7 Substance use: never Substance use type: does not use Do You Feel Safe in your Home?: Yes Lack of Transportation: No Lack of Food: Never True Current Housing: I Have Housing Concerned About Future Housing: No Difficulty Paying Gas/Electric Bills: No Difficulty Paying for Meds: No Currently Unemployed: No Education: Master's Degree or Higher Living arrangements: with family Occupation/Education: occupation Gender identity (if verbalized by the patient): Female Sexual Orientation (if Verbalized by the Patient): Straight or Heterosexual Spiritual care concerns: No Anes - Eval Final PreProcedure Day of Procedure 05/26/24 07:08 Patient weight: normal Heart: regular rate and rhythm Lungs: clear to auscultation and normal air movement Airway: Mallampati scale class II Neurological: alert and oriented Last oral intake: >/= 8 hours ASA classification: II Emergent: no Anesthetic plan: proceed Anesthesia type and monitoring: general GIVS and standard monitoring Results Review: All pre-operative results and documents have been reviewed as part of the pre-operative evaluation. Informed Consent: The patient's anesthetic plan and its attendant risks and benefits were discussed with the patient/family/POA. Questions were solicited and answers provided to the satisfaction of the patient/family/POA.
--- NOTE | 2024-05-26 07:28 | P.HP_ITS ---
H&P: HPI History of Present Illness Date/Time: 05/26/24 07:28 Chief Complaint: Screening for colorectal cancer Narrative: This is a 58-year-old woman who presents for colonoscopy. Her last colonoscopy was 5 years ago and a polyp was removed. She has had some occasional blood in her stool. She denies family history of colon cancer. Review of Systems Review of Systems: All systems reviewed & are unremarkable except as noted in HPI and below Constitutional: Constitutional: Denies chills, Denies fever(s), Denies headache(s) and Denies weight loss Eyes: Eyes: Denies change in vision ENT: Denies dizziness, Denies headache(s), Denies neck mass and Denies throat swelling Cardiovascular: Cardiovascular: Denies chest pain, Denies lightheadedness and Denies dyspnea Respiratory: Respiratory: Denies cough, Denies dyspnea and Denies wheezing Gastrointestinal: Gastrointestinal: Denies abdominal pain, Denies change in bowel habits, Denies nausea and Denies vomiting Genitourinary: Genitourinary: Denies hematuria and Denies dysuria Musculoskeletal: Musculoskeletal: Reports as per HPI Integumentary/Breasts: Skin/Breast: Reports as per HPI Neurologic: Denies dizziness and Denies headache(s) Allergic/Immunologic: Allergic/Immunologic: Denies throat swelling and Denies wheezing [facility] Past Medical History Medical History (Updated 05/26/24 @ 07:29 by Doyle Roth DO) Hypothyroid Hyperlipidemia Hypertension Surgical History Surgical History History of endometrial ablation H/O wisdom tooth extraction History of appendectomy H/O left wrist surgery Family History Family History (Updated 04/21/24 @ 13:15 by Eladia Gonsalves MA) Other Cardiovascular disease Social History Social History (Updated 04/21/24 @ 13:15 by Eladia Gonsalves MA) Smoking status: Never smoker Alcohol intake: current Drinks per week: 7 Substance use: never Substance use type: does not use Do You Feel Safe in your Home?: Yes Lack of Transportation: No Lack of Food: Never True Current Housing: I Have Housing Concerned About Future Housing: No Difficulty Paying Gas/Electric Bills: No Difficulty Paying for Meds: No Currently Unemployed: No Education: Master's Degree or Higher Living arrangements: with family Occupation/Education: occupation Gender identity (if verbalized by the patient): Female Sexual Orientation (if Verbalized by the Patient): Straight or Heterosexual Spiritual care concerns: No Meds Home Medications and Allergies Home Medications ?Medication ?Instructions ?Recorded ?Confirmed ?Type cholecalciferol (vitamin D3) 25 1,000 mcg PO DAILY 12/23/19 05/12/24 History mcg (1,000 unit) tablet (Vitamin D3) magnesium oxide 500 mg PO DAILY 12/23/19 05/12/24 History multivitamin-ferrous 1 tablet PO DAILY 12/23/19 04/21/24 History fumarate-folic acid 18 mg-400 mcg tablet (Daily Multivitamin with Iron) liothyronine 5 mcg tablet 5 mcg PO TID #270 tabs 06/03/21 05/12/24 Rx albuterol sulfate 90 mcg/actuation 1 puff inhalation Q4H PRN 09/19/21 05/12/24 Rx aerosol inhaler (Ventolin HFA) shortness of breath or wheezing #8.5 grams omega-3 fatty acids 500 mg capsule 500 mg PO DAILY 09/30/22 05/12/24 History zinc sulfate 50 mg zinc (220 mg) 50 mg PO DAILY 09/30/22 05/12/24 History capsule (Zinc-220) atorvastatin 10 mg tablet 10 mg PO DAILY #90 tabs 05/13/23 05/12/24 Rx Prometrium 200 mg capsule 200 mg PO QHS 90 days #90 caps 07/07/23 05/12/24 Rx (progesterone micronized) lisinopril 20 1 tablet PO DAILY #90 tabs 12/29/23 05/12/24 Rx mg-hydrochlorothiazide 25 mg tablet tarine BYMOUTH 04/21/24 04/21/24 History Allergies Allergy/AdvReac Type Severity Reaction Status Date / Time Sulfa (Sulfonamide Allergy Hives Verified 05/26/24 06:18 Antibiotics) Vital Signs Vital Signs - 24 hr 05/26/24 06:19 Temperature 96.8 F L Pulse Rate 83 Respiratory Rate 16 Blood Pressure 107/64 Pulse Oximetry 100 Oxygen Delivery Room Air Exam Const: General: no acute distress and alert Orientation/consciousness: patient oriented x3 HENMT: Head: normocephalic and atraumatic Ears: hearing grossly normal bilaterally Face/Nose/Sinus: Normal nares present Mouth: Yes Normal oral and palatal mucosa present Eyes: Periorbital: periorbital findings normal Sclera: sclerae normal EOM: EOMs intact bilaterally Neck: Neck: normal visual inspection, no lymphadenopathy and trachea midline Chest: Chest palpation & inspection: normal inspection of the chest Resp: Effort & Inspection: normal respiratory effort Auscultation: clear to auscultation bilaterally Cardio: Jugular venous distension: no JVD Rate: regular rate Rhythm: regular rhythm Heart sounds: S1 normal heart sound present and S2 normal heart sound present Peripheral pulses: Peripheral pulses 2+ throughout GI: Inspection: normal to inspection GI Palp: Yes Soft to palpation, No Tenderness to palpation present (GI), No Guarding due to palpation present (GI) and No Rebound tenderness present Percussion: Yes normal to percussion Auscultation: normal bowel sounds : General: Yes no CVA tenderness Back/Spine/Pelvis: Back: no CVA tenderness Neuro: General: patient oriented x3, no focal motor deficits and CN's II-XI intact bilaterally Cognition (Neuro): normal cognition Speech: normal speech Motor exam (neuro): 5/5 motor strength present throughout Extrem: General: capillary refill normal and no clubbing, cyanosis or edema Assessment and Plan Assessment and plan (1) Screening for colorectal cancer: Code(s): Z12.11 - Encounter for screening for malignant neoplasm of colon; Z12.12 - Encounter for screening for malignant neoplasm of rectum Status: Acute Assessment and Plan: I have recommended colonoscopy. I have discussed the procedure, risks, benefits, and alternatives. Questions were answered. Patient is agreeable to proceed.
[2024-05-26 07:56] VITALS: BP 105/63; PULSE 76; RESP 15; O2SAT 100
[2024-05-26 08:00] VITALS: BP 112/69; PULSE 70; RESP 16; O2SAT 100
[2024-05-26 08:16] VITALS: BP 122/68; PULSE 70; RESP 16; O2SAT 100
== END 2024-05-26 08:44 | disposition home or self-care (01) ==
PROVIDERS: PCP Internal Medicine; Visit Provider Surgery
PROC: 0DJD8ZZ Inspection of Lower Intestinal Tract, Via Natural or Artificial Opening Endoscopic (ICD-10-PCS; CPT 45378; principal; 2024-05-26 07:30)
DX: Z12.11 Encounter for screening for malignant neoplasm of colon (principal); K64.8 Other hemorrhoids; Z86.0100 Personal history of colon polyps, unspecified
CPT/HCPCS: 45378; J2003; J2704; J7120